=== PATIENT | male | born 1955 | race Caucasian/White ===

== ENCOUNTER 2017-12-26 19:02 | Inpatient (IN) | payer BC ==
[2017-12-26 20:52] LABS: ABS Basophils 0 10^3/ul (0-0.2); ABS Eosinophils 0.5 10^3/ul (0-0.6); ABS Lymphocytes 2.7 10^3/ul (1.0-4.8); ABS Monocytes 0.6 10^3/ul (0-0.8); ABS Neutrophils 4.4 10^3/ul (1.5-7.7); ABS Nucleated RBC 0 10^3/ul; Eosinophil % 5.7 % (0-6); Hematocrit 45 % (42-52); Hemoglobin 15.5 g/dl (14.0-18.0); Lymphocyte % 32.8 % (25-47); Mean Corpuscular HGB Conc 35 g/dl (31-36); Mean Corpuscular Hemoglobin 31 pg (27-31); Mean Corpuscular Volume 88 fL (80-94); Mean Platelet Volume 10.2 um3 (7.4-10.4); Nucleated Red Blood Cells % 0.2; Platelet Count 110 10^3/ul (150-450); Red Blood Count 5.03 10^6/ul (4.0-5.4); Red Cell Distribution Width 13 % (10.5-15); White Blood Count 8.2 10^3/ul (3.5-10.8)
[2017-12-26 21:02] LABS: EGFR Non-African American 56.6 (>60)
[2017-12-26] MEDS ORDERED: Albuterol HFA INHALER* 8 gm MDI INH PRN (22:24)
[2017-12-26] MEDS ORDERED: Acetaminophen TAB* 325 MG PO PRN (22:27)
[2017-12-26] MEDS ORDERED: Zolpidem TAB* 10 MG PO PRN (22:28)
[2017-12-26] MEDS: Dofetilide CAP* 500 MCG PO SCH (22:48)
[2017-12-27 06:35] LABS: EGFR Non-African American 57.6 (>60)
[2017-12-27] MEDS ORDERED: Metoprolol Succinate XL TAB* 25 MG PO SCH (09:00)
[2017-12-27] MEDS: Aspirin EC TAB* 81 MG TAB.EC PO SCH (09:23)
[2017-12-27] MEDS: Dofetilide CAP* 500 MCG PO SCH (09:23)
[2017-12-27] MEDS ORDERED: Dofetilide CAP* 500 MCG PO SCH (09:34)
[2017-12-27] MEDS: Dofetilide CAP* 250 MCG PO SCH (20:51)
[2017-12-27] MEDS: Metoprolol Succinate XL TAB* 25 MG PO SCH (20:52)
[2017-12-28 06:54] LABS: EGFR Non-African American 59.8 (>60)
[2017-12-28] MEDS: Aspirin EC TAB* 81 MG TAB.EC PO SCH (10:36)
[2017-12-28] MEDS: Dofetilide CAP* 250 MCG PO SCH ×2 (10:36→21:49)
[2017-12-28] MEDS: Metoprolol Succinate XL TAB* 25 MG PO SCH (21:49)
--- NOTE | 2017-12-28 22:50 | HP ---
CC: Mauricio Orta MD; Megan Bermeo MD * ADMISSION HISTORY AND PHYSICAL: DATE OF ADMISSION: 12/26/17 INDICATION FOR ADMISSION: Atrial fibrillation, Tikosyn initiation. HISTORY OF PRESENT ILLNESS: The patient is a 62-year-old gentleman with a history of lone atrial fibrillation who had previously been treated with flecainide. He had been intolerant of flecainide and the decision was to change him to Tikosyn. The patient has been off flecainide for more than 5 days. He has been admitted to the hospital for Tikosyn initiation. PAST MEDICAL HISTORY: Significant for osteoarthritis, paroxysmal atrial fibrillation, sleep apnea, and hypertension. PAST SURGICAL HISTORY: Rotator cuff surgery, spine surgery. OUTPATIENT MEDICATIONS: 1. Metoprolol ER 25 mg once a day. 2. Nasonex nose spray. 3. Vitamin D. 4. Aspirin 81 mg a day. 5. Tylenol. 6. BiPAP machine. 7. He is not on anticoagulation as he has lone atrial fibrillation. ALLERGIES: No known drug allergies. FAMILY HISTORY: Mother of ovarian cancer. Father has had diabetes. SOCIAL HISTORY: He is currently . He is a physical therapist. Denies smoking or alcohol. PHYSICAL EXAMINATION VITAL SIGNS: Height is 5 feet 8 inches, weight 202 pounds. Heart rate 62, blood pressure 120/78, respiratory rate 16, and oxygen saturation 97% on room air. HEENT: Sclerae anicteric. Oropharynx pink without erythema. Carotids are 2+ without bruits. JVD is normal, thyroid is normal. LUNGS: Clear to auscultation bilaterally. There is no dullness to percussion. CARDIAC: S1 and S2 without any murmurs, rubs, or gallops. ABDOMEN: Soft, nontender, and nondistended with normoactive bowel sounds. EXTREMITIES: Show no edema. IMAGING STUDIES: EKG shows normal sinus rhythm with a normal QT interval. LABORATORY STUDIES: All within normal limits. Chemistries are normal. IMPRESSION: Atrial fibrillation. PLAN/RECOMMENDATIONS: The patient will be started on Tikosyn 500 mcg b.i.d. and his dose will be adjusted accordingly. [id number]/[facility] #: [id number] MTDD
[2017-12-29 07:42] LABS: EGFR Non-African American 62.1 (>60)
[2017-12-29] MEDS: Aspirin EC TAB* 81 MG TAB.EC PO SCH (08:55)
[2017-12-29] MEDS: Dofetilide CAP* 250 MCG PO SCH (08:55)
[2017-12-29 09:40] VITALS: BP 147/70
--- NOTE | 2017-12-30 04:36 | DS ---
CC: Dr. Bermeo.* DISCHARGE SUMMARY: DATE OF ADMISSION: 12/26/17 DATE OF DISCHARGE: 12/29/17 INDICATION FOR ADMISSION: Tikosyn initiation. Please see my admission history and physical for details of this presentation. The patient is a 62-year-old gentleman with a history of paroxysmal atrial fibrillation. He had been on flecainide in the past. Dr. Bermeo wanted him to switch over to Tikosyn because of the side effects he was having on flecainide. SUMMARY OF HOSPITAL COURSE: The patient was admitted to the hospital on . His EKG and lab work were unremarkable. He was started on Tikosyn 500 mcg b.i.d. His EKG the next day did show prolongation of the QT interval of more than 15% above baseline and his Tikosyn was decreased to 250 mcg b.i.d. The patient tolerated the initiation of Tikosyn well. He was discharged from the hospital today. His QT interval today was 462. Laboratory studies were within normal limits. PHYSICAL EXAM: On physical exam, temperature 97.4, heart rate is 62, blood pressure 147/70. Carotids are 2+ without bruits. JVD is normal. Thyroid is normal. Cardiac Exam: S1 and S2 without any murmurs, rubs or gallops. Lungs: Clear to auscultation. Extremities: Show no edema. DIAGNOSTIC STUDIES/LAB DATA: Laboratory studies today demonstrates potassium, BUN, and creatinine are stable. EKG today demonstrates normal sinus rhythm, QTc of 446. DISCHARGE MEDICATIONS: 1. Albuterol inhaler as needed 2. Dofetilide/Tikosyn 250 mcg b.i.d. 3. Metoprolol succinate 25 mg once a day. FOLLOWUP: The patient will follow up with Dr. Bermeo in 3 weeks. [id number]/[facility] #: [id number] [facility]USJennyfer
== END 2017-12-29 11:35 | disposition home or self-care (01) | DRG 862 ==
LOC: MEDTELE 19:56
PROVIDERS: ADMIT Specialist; ATTEND Specialist
DX: Z51.81 Encounter for therapeutic drug level monitoring (principal); I48.0 Paroxysmal atrial fibrillation; M19.90 Unspecified osteoarthritis, unspecified site; G47.30 Sleep apnea, unspecified; I10 Essential (primary) hypertension; Z79.82 Long term (current) use of aspirin; Z79.899 Other long term (current) drug therapy; Z80.41 Family history of malignant neoplasm of ovary; Z83.3 Family history of diabetes mellitus
CPT/HCPCS: 36415; 80048; 83735; 85025; 93005; A9270-GY

== ENCOUNTER 2019-11-23 11:52 | Emergency (ER) | payer MEDICARE, BC ==
[2019-11-23 13:14] LABS: Rapid Strep Molecular Negative (Negative)
[2019-11-23 14:06] VITALS: BP 132/85
--- NOTE | 2019-11-23 14:18 | ED ---
Throat Pain/Nasal Congestion - HPI Summary HPI Summary: Patient is a 64-year-old male presenting to the ED with request of testing for Coronavirus from the health department. Pt recently returned from a 6 week vacation in [place]. Patient had exposure, but no known specific exposures to any sick individuals per his knowledge. Patient states for the past week and a half or so, he has been feeling somewhat ill with a mild cough and throat pain. He states the sore throat worsened when he arrived back to the [facility]. He denies any fevers, sweats, chills or respiratory distress. Hx of a fib. Patient otherwise healthy. Denies any headache, confusion, memory loss, abdominal pain, urinary symptoms, back pain. Denies any ear pain, nasal congestion or runny nose. He states his has similar symptoms. He was able to call his doctor today who contacted the health Department sent in him here for testing due to his travel history. - History of Current Complaint Chief Complaint: EDThroatPain Time Seen by Provider: 11/23/19 11:59 - Allergies/Home Medications Allergies/Adverse Reactions: Allergies Allergy/AdvReac Type Severity Reaction Status Date / Time animals Allergy Unknown Unknown Uncoded 10/05/15 11:45 Reaction Details Dog Dander Allergy Unknown Unknown Uncoded 10/05/15 11:45 Reaction Details graminaea pollens Allergy Unknown Unknown Uncoded 12/28/17 02:51 Reaction Details molds and smuts Allergy Unknown Unknown Uncoded 12/28/17 02:51 Reaction Details Home Medications: Home Medications Dofetilide CAP* [Tikosyn CAP*] 250 mcg PO BID #60 cap 12/29/17 [Rx Confirmed 07/04] Acetaminophen [Tylenol Extra Strength] 1,000 mg PO DAILY PRN 11/23/19 [History Confirmed 11/23/19] Albuterol HFA INHALER* [Ventolin HFA Inhaler*] 2 puff INH Q4H PRN 11/23/19 [ History Confirmed 11/23/19] Cholecalciferol TAB* [Vitamin D TAB*] 1,000 unit PO DAILY 11/23/19 [History Confirmed 11/23/19] Potassium Chlor TAB (NF) [Kaon-Cl-10 TAB (NF)] 20 meq PO DAILY 11/23/19 [ History Confirmed 11/23/19] Rivaroxaban TAB(*) [Xarelto 20 mg] 20 mg PO DAILY 11/23/19 [History Confirmed ] Varicella-Zoster GE/AS01B/PF [Shingrix Vial Kit*] 50 mcg IM ONCE 11/23/19 [ History Confirmed 11/23/19] amLODIPine TAB* [Norvasc 5 mg TAB*] 5 mg PO DAILY 11/23/19 [History Confirmed ] PMH/Surg Hx/FS Hx/Imm Hx Endocrine/Hematology History: Denies: Hx Diabetes Cardiovascular History: Reports: Hx Hypertension Denies: Hx Pacemaker/ICD Respiratory History: Reports: Hx Asthma, Hx Sleep Apnea, Other Respiratory Problems/Disorders - PNUEMONIA History: Denies: Hx Renal Disease Musculoskeletal History: Reports: Hx Arthritis - l knee, shoulders, neck, Hx Back Problems, Other Musculoskeletal History - C4-5 neck fusion Denies: Hx Scoliosis Sensory History: Reports: Hx Contacts or Glasses, Hx Vision Problem - pseudopapolidema Denies: Hx Hearing Aid Opthamlomology History: Reports: Hx Contacts or Glasses, Hx Vision Problem - pseudopapolidema Neurological History: Reports: Hx Migraine Psychiatric History: Denies: Hx Panic Disorder - Cancer History Cancer Type, Location and Year: basal cell ca- SURGERY 2014 Hx Chemotherapy: No Hx Radiation Therapy: No - Surgical History Surgery Procedure, Year, and Place: tonsils,(left) rotator cuff, C4-5 neck fusion Hx Anesthesia Reactions: No Infectious Disease History: No Infectious Disease History: Reports: Traveled Outside the [place] in Last 30 Days - Social History Alcohol Use: Daily Substance Use Type: Reports: None Hx Tobacco Use: No Smoking Status (MU): Never Smoked Tobacco Physical Exam Vital Signs On Initial Exam: Initial Vitals Temp Pulse Resp BP Pulse Ox 98.6 F 73 18 139/84 97 11/23/19 12:25 11/23/19 12:25 11/23/19 12:25 11/23/19 12:25 11/23/19 12:25 Diagnostics - Vital Signs Vital Signs Temp Pulse Resp BP Pulse Ox 11/23/19 14:02 132/85 11/23/19 14:00 70 97 11/23/19 13:00 62 97 11/23/19 12:35 65 96 11/23/19 12:25 98.6 F 73 18 139/84 97 - Laboratory Lab Results: Lab Results 11/23/19 Range/Units 12:34 Group A Strep Rapid Negative (Negative) Lab Statement: Any lab studies that have been ordered have been reviewed, and results considered in the medical decision making process. EENT Course/Dx - Course Course Of Treatment: Proper precautions taken when approaching patient. Patient is endorsing very mild symptoms. On physical examination, no conjunctival injection. No sinus tenderness. No cervical LAD. Lungs clear to auscultation bilaterally. RRR. Slight pharyngeal erythema without tonsillar exudates or swelling. Patient appears well, nondiaphoretic and nontoxic in appearing. No cough noted on exam. Patient is afebrile on arrival and vital signs are stable. A strep swab obtained is negative. Health Department to follow-up with patient regarding his symptoms. - Differential Diagnoses Differential Diagnoses: Other - viral syndrome - Diagnoses Provider Diagnoses: Pharyngitis Discharge ED - Discharge Plan Condition: Stable Disposition: HOME Patient Education Materials: Pharyngitis (ED) Referrals: Cyn Huntley MD [Primary Care Provider] - Additional Instructions: Over the counter cepacol will help with symptoms Tylenol 650mg four times daily rest as much as possible - Billing Disposition and Condition Condition: STABLE Disposition: Home
== END 2019-11-23 14:10 | disposition home or self-care (01) ==
LOC: ED 11:52
DX: J02.9 Acute pharyngitis, unspecified (principal); G47.33 Obstructive sleep apnea (adult) (pediatric); J45.909 Unspecified asthma, uncomplicated; Z20.828 Contact with and (suspected) exposure to other viral communicable diseases
CPT/HCPCS: 87651; 99282